=== PATIENT | female | born 2000 | race Hispanic/Latino ===

== ENCOUNTER 2022-10-28 17:54 | Emergency (ER) | payer OTHER ==
[~2022-10-28] VITALS: Ht 170.2 cm; Wt 99.8 kg
[2022-10-28 18:00] VITALS: O2SAT 100
[2022-10-28] MEDS ORDERED: CEPHALEXIN500 MG PO (18:20)
[2022-10-28] MEDS ORDERED: IBUPROFEN600 MG PO (18:20)
== END 2022-10-28 18:20 | disposition home or self-care (01) ==
LOC: ER 18:06
DX: L03.031 Cellulitis of right toe (principal)
CPT/HCPCS: 99283